=== PATIENT | male | born 1950 | race Caucasian/White ===

== ENCOUNTER 2016-05-05 03:37 | Emergency (ER) | payer MEDICARE ==
[~2016-05-05] VITALS: Ht 182.9 cm; Wt 90.0 kg
[~2016-05-05 03:37] MED LIST: GABA300C3 PO; TAMS0.4C67 PO; TRAM50TA PO; ULTR50TA PO
[2016-05-05 03:39] VITALS: BP 112/54; PULSE 61; RESP 16; TEMP 97.9; O2SAT 98
[2016-05-05] MEDS ORDERED: SODIUM CHLOR 0.9% 1000 ML INJ 1,000 ML IV ONE (03:42)
[2016-05-05 03:44] LABS: MEAN CORPUSCULAR HGB CONC 37.6 % (32.0-36.0)
[2016-05-05] MEDS ORDERED: SODIUM CHLORIDE 0.9% FLUSH 5 ML FLUSH IVF PRN (03:45)
[2016-05-05] MEDS ORDERED: GABA300C5 PO (03:48)
[2016-05-05] MEDS ORDERED: TAMS5CAP PO (03:48)
--- NOTE | 2016-05-05 04:02 | PD ---
HPI Chief Complaint: Syncope/Near-Syncope Time Seen by Provider: 03:42 Travel History International Travel<30 days: No Contact w/Intl Traveler<30days: No Traveled to known affect area: No History of Present Illness HPI 65-year-old male arrives by EMS. He went to the refrigerator this evening. He became very dizzy and lightheaded. He eased himself to the ground and then crawled to his who called EMS. EMS reports a blood pressure on scene in the 90s with a heart rate in the 80s. The O2 sat was on her percent on room air. He reports decreased oral intake lately. He reports decreased energy overall. The patient underwent a sinusplasty procedure about [address] Billy. He was nauseated and vomited en route; 4mg zofran was helpful. No CP. No SOB. No fever. EMS gave 1 L normal saline and the blood pressure decreased to 100 systolic. PFSH Past Medical History Medical other: Yes (PROSTATE ISSUE ESOPHOGEAL STRICTURE) Neurologic: Yes (PINCHED NERVE, NEUROPATHY) Tetanus Vaccination: Never Vaccinated Influenza Vaccination: No Social History Alcohol Use: No Tobacco Use: No Substance Use: No Allergies-Medications (Allergen,Severity, Reaction): Coded Allergies: Tetanus Toxoid (Verified Allergy, Unknown, 09/11/15) Reported Meds & Prescriptions Reported Meds & Active Scripts Active Tramadol (Tramadol HCl) 50 Mg Tab 50 Mg PO Q6H PRN Reported Flomax (Tamsulosin HCl) 0.4 Mg Cap 0.4 Mg PO DAILY Gabapentin 300 Mg Cap 300 Mg PO DAILY Review of Systems Except as stated in HPI: all other systems reviewed are Neg General / Constitutional: No: Fever, Chills Neurologic: Positive: Dizziness Physical Exam Narrative GENERAL: 65 yo M, WNWD, NAD, speaking full sentences SKIN: Warm and dry. HEAD: Atraumatic. Normocephalic. EYES: Pupils equal and round. No scleral icterus. No injection or drainage. ENT: No nasal bleeding or discharge. Mucous membranes pink and moist. NECK: Trachea midline. No JVD. CARDIOVASCULAR: Regular rate and rhythm. RESPIRATORY: No accessory muscle use. Clear to auscultation. Breath sounds equal bilaterally. GASTROINTESTINAL: Abdomen soft, non-tender, nondistended. Hepatic and splenic margins not palpable. MUSCULOSKELETAL: Extremities without clubbing, cyanosis, or edema. No obvious deformities. NEUROLOGICAL: Awake and alert. No obvious cranial nerve deficits. Motor grossly within normal limits. Five out of 5 muscle strength in the arms and legs. Normal speech. PSYCHIATRIC: Appropriate mood and affect; insight and judgment normal. Data Data Last Documented VS Vital Signs Date Time Temp Pulse Resp B/P Pulse Ox O2 Delivery O2 Flow Rate FiO2 05/05/16 03:39 97.9 61 16 112/54 98 VS reviewed Orders Electrocardiogram (05/05/16 03:42) Basic Metabolic Panel (Bmp) (05/05/16 03:42) Complete Blood Count With Diff (05/05/16 03:42) Magnesium (Mg) (05/05/16 03:42) Ckmb (Isoenzyme) Profile (05/05/16 03:42) Troponin I (05/05/16 03:42) Chest, Single Ap (05/05/16 03:42) Ecg Monitoring (05/05/16 03:42) Iv Access Insert/Monitor (05/05/16 03:42) Oximetry (05/05/16 03:42) Sodium Chloride 0.9% Flush (Ns Flush) (05/05/16 03:45) Sodium Chlor 0.9% 1000 Ml Inj (Ns 1000 M (05/05/16 03:42) Labs Laboratory Tests Test 05/05/16 03:50 White Blood Count 6.7 TH/MM3 Red Blood Count 3.21 MIL/MM3 Hemoglobin 12.9 GM/DL Hematocrit 34.2 % Mean Corpuscular Volume 106.7 FL Mean Corpuscular Hemoglobin 40.1 PG Mean Corpuscular Hemoglobin 37.6 % Concent Red Cell Distribution Width 12.9 % Platelet Count 114 TH/MM3 Mean Platelet Volume 9.7 FL Neutrophils (%) (Auto) 71.3 % Lymphocytes (%) (Auto) 16.3 % Monocytes (%) (Auto) 11.6 % Eosinophils (%) (Auto) 0.2 % Basophils (%) (Auto) 0.6 % Neutrophils # (Auto) 4.8 TH/MM3 Lymphocytes # (Auto) 1.1 TH/MM3 Monocytes # (Auto) 0.8 TH/MM3 Eosinophils # (Auto) 0.0 TH/MM3 Basophils # (Auto) 0.0 TH/MM3 CBC Comment AUTO DIFF Differential Comment AUTO DIFF CONFIRMED Sodium Level 140 MEQ/L Potassium Level 4.0 MEQ/L Chloride Level 109 MEQ/L Carbon Dioxide Level 22.2 MEQ/L Anion Gap 9 MEQ/L Blood Urea Nitrogen 11 MG/DL Creatinine 0.88 MG/DL Estimat Glomerular Filtration 86 ML/MIN Rate Random Glucose 138 MG/DL Calcium Level 7.7 MG/DL Magnesium Level 2.1 MG/DL Total Creatine Kinase 88 U/L Troponin I LESS THAN 0.02 NG/ML MDM Medical Decision Making Medical Screen Exam Complete: Yes Emergency Medical Condition: Yes Medical Record Reviewed: Yes Differential Diagnosis Arrhythmia, anemia, orthostatic hypotension, vertigo, electrolyte imbalance, polypharmacy Narrative Course CBC & BMP Diagram 05/05/16 03:50 Tn < 0.02 EKG: Sinus, rate 59, KS interval 211, normal axis Chest x-ray reveals no acute cardiopulmonary disease The patient has been resting here comfortably. He ambulated to the ER without difficulty. He reports doubling his Flomax dose and still suffering with fairly significant nocturia. It has prevented him from sleeping well. His Flomax dose and will now return to the normal dose. He has follow-up with urology and with our family practice providers. It is unlikely that he will benefit from an inpatient evaluation. Diagnosis Primary Impression: Syncope and collapse Referrals: Garcia Foster MD 2 days Additional Instructions: You have a choice when it comes to health care, and we are glad that you chose [facility]. Hopefully, we have met your expectations on today's visit. You are welcome to return to [facility] at any time, as we are committed to meeting the health care needs of our community. Med/Other Pt SpecificInfo: No Change to Meds Disposition: 01 DISCHARGE HOME Condition: Stable Roshan Pedersen MD May 05, 2016 04:02
[2016-05-05 04:12] LABS: AUTOMATED NEUTROPHIL # 4.8 TH/MM3 (1.8-7.7); BASOPHIL % 0.6 % (0.0-2.0); EOSINOPHIL % 0.2 % (0.0-4.0); HEMATOCRIT 34.2 % (39.0-51.0); LYMPH % 16.3 % (9.0-44.0); LYMPHOCYTE # 1.1 TH/MM3 (1.0-4.8); MEAN CELL VOLUME 106.7 FL (80.0-100.0); MEAN CORPUSCULAR HEMOGLOBIN 40.1 PG (27.0-34.0); MONO % 11.6 % (0.0-8.0); NEUT % 71.3 % (16.0-70.0); PLATELET COUNT 114 TH/MM3 (150-450); RED BLOOD COUNT 3.21 MIL/MM3 (4.50-5.90); RED CELL DISTRIBUTION WIDTH 12.9 % (11.6-17.2); WHITE BLOOD COUNT 6.7 TH/MM3 (4.0-11.0)
[2016-05-05 04:23] LABS: HEMO FLAGS AUTO DIFF
[2016-05-05 04:54] LABS: ANION GAP 9 MEQ/L (5-15); BICARBONATE 22.2 MEQ/L (21.0-32.0); BLOOD UREA NITROGEN 11 MG/DL (7-18); CHLORIDE 109 MEQ/L (98-107); GLOMERULAR FILTRATION RATE 86 ML/MIN (>89); MAGNESIUM 2.1 MG/DL (1.5-2.5); SODIUM (NA) 140 MEQ/L (136-145)
[2016-05-05 04:57] LABS: CREATINE KINASE 88 U/L (39-308)
[2016-05-05 05:04] LABS: SCAN/DIFF AUTO DIFF CONFIRMED
--- NOTE | 2016-05-05 05:32 | RADRPT ---
EXAM DATE/TIME: 05/05/2016 04:08 [facility] COMPARISON: No previous studies available for comparison. INDICATIONS : Chest pain after fall. MEDICAL HISTORY : None. SURGICAL HISTORY : None. ENCOUNTER: Initial ACUITY: 1 day PAIN SCORE: 5/10 LOCATION: Bilateral chest FINDINGS: A single view of the chest demonstrates the lungs to be symmetrically aerated without evidence of mas s, infiltrate or effusion. The cardiomediastinal contours are unremarkable. Osseous structures are intact. CONCLUSION: No acute disease. Tolu Queen MD on May 05, 2016 at 5:30 Board Certified Radiologist. This report was verified electronically.
[2016-05-05 06:30] VITALS: BP 111/55
--- NOTE | 2016-05-05 10:02 | EKG ---
Date Performed: 05/05/2016 Time Performed: 03:43:27 PTAGE: 65 years EKG: SINUS BRADYCARDIA WITH FIRST DEGREE AV BLOCK ABNORMAL ECG WARNING: DATA QUALITY MAY AFFECT INTERPRETATION NO PREVIOUS TRACING DOCTOR: Jesus Zavala Interpretating Date/Time 05/05/2016 10:00:17
== END 2016-05-05 06:31 | disposition home or self-care (01) ==
LOC: NEPE 03:37
DX: R55 Syncope and collapse (principal); R11.2 Nausea with vomiting, unspecified
CPT/HCPCS: 71010; 80048; 82550; 83735; 84484; 85025; 93005; 96360; 99284; J7030